=== PATIENT | female | born 1990 | race Caucasian/White ===

== ENCOUNTER → 2023-12-16 15:30 | Outpatient (CLI) | payer OTHER, SELFPAY ==
[2023-12-16 17:12] LABS: Influenza A - CEPHEID Flu A NEGATIVE (NEGATIVE); Influenza B - CEPHEID Flu B NEGATIVE (NEGATIVE); Respiratory Syncytial Virus Negative (Negative)
[2023-12-16 17:18] LABS: COVID-19 CEPHEID 4-PLEX PCR Negative (Negative)
== END ==
PROVIDERS: Referring Provider Student in an Organized Health Care Education/Training Program; Visit Provider Student in an Organized Health Care Education/Training Program
DX: R05.1 Acute cough (principal)
CPT/HCPCS: 0241U

== ENCOUNTER 2023-12-16 15:41 | Emergency (ER) | payer OTHER, SELFPAY ==
[2023-12-16 15:49] VITALS: BP 133/71; PULSE 83; RESP 16; TEMP 36.4; O2SAT 99; BMI 65.2
--- NOTE | 2023-12-16 16:09 | PC.NURSE ---
patient has a history of migraines, pt reports that usually she feels nauseous and throws up with her migraines but today she hasnt stopped throwing up and her migraine medication has not helped her pain
--- NOTE | 2023-12-16 16:25 | ED_ITS ---
HPI - Headache General Chief Complaint: Headache Stated Complaint: Headache/V Time Seen by Provider: 12/16/23 15:52 Mode of arrival: Ambulatory History of Present Illness HPI Narrative: 33-year-old female presents for headache. Reports history of migraines, but s tates that this is not responding to her home Imitrex. Reports history of migraines but has never had to come to the emergency department for treatment. Here on vacation from [place] Related Data Home Medications Medication Instructions Recorded Confirmed atorvastatin 20 mg tablet 20 mg PO DAILY 12/16/23 12/16/23 sertraline 100 mg tablet 100 mg PO DAILY 12/16/23 12/16/23 Allergies Allergy/AdvReac Type Severity Reaction Status Date / Time No Known Drug Allergies Allergy Unverified 12/16/23 15:55 Patient History Social History Smoking Status: Never smoker Smoking Status: Never smoker Exam Initial Vital Signs Initial Vital Signs: Vital Signs Temperature 97.5 F L 12/16/23 15:49 Pulse Rate 83 12/16/23 15:49 Respiratory Rate 16 12/16/23 15:49 Blood Pressure 133/71 12/16/23 15:49 Pulse Oximetry 99 12/16/23 15:49 Oxygen Delivery Method Room Air 12/16/23 15:49 Const: Awake, alert, uncomfortable, in pain GI: Soft, nontender, nondistended Skin: Warm, Dry, intact, no rashes Neuro: AO x3, CN II-XII grossly intact, moves all extremities Course Orders Ordered: Discontinued Medications Diphenhydramine HCl (Diphenhydramine 50 Mg/Ml Vial) 50 mg IV NOW ONE Stop: 12/16/23 16:22 Last Admin: 12/16/23 16:33 Dose: 50 mg Documented By: WINDY Sodium Chloride (Normal Saline 0.9%) 1,000 mls @ 1,000 mls/hr IV BOLUS ONE Stop: 12/16/23 17:20 Last Infusion: 12/16/23 17:29 Dose: Infused Documented By: Admin: 12/16/23 16:35 Dose: 1,000 mls/hr Documented By: WINDY Ketorolac Tromethamine (Ketorolac 30 Mg/Ml Vial) 15 mg IV NOW ONE Stop: 12/16/23 16:26 Last Admin: 12/16/23 16:30 Dose: 15 mg Documented By: WINDY Metoclopramide HCl (Metoclopramide 10 Mg/2 Ml Inj) 10 mg IV NOW ONE Stop: 12/16/23 16:22 Last Admin: 12/16/23 16:30 Dose: 10 mg Documented By: WINDY Vital Signs Vital signs: Vital Signs - 8 hr 12/16/23 15:49 12/16/23 16:44 12/16/23 16:45 Temperature 97.5 F L Pulse Rate 83 88 Respiratory Rate 16 Blood Pressure 133/71 102/52 L Pulse Oximetry 99 99 Oxygen Delivery Method Room Air 12/16/23 16:45 12/16/23 17:00 12/16/23 17:00 Temperature Pulse Rate 86 84 Respiratory Rate Blood Pressure 100/50 L Pulse Oximetry 100 100 Oxygen Delivery Method MDM - Headache Differential Diagnosis Differential diagnosis: Likely migraine, tension headache and subarachnoid hemorrhage Imaging Data CT scan - head: Radiologist's Impression: PROCEDURE: CT HEAD/BRAIN WO CON INDICATIONS: NAZARIO, NEW PATTERN TECHNIQUE: Noncontrast 4.5 mm thick angled axial sections acquired from the foramen magnum to the vertex, with coronal and sagittal reformats. For radiation dose reduction, the following was used: automated exposure control, adjustment of mA and/or kV according to patient size. COMPARISON: None. FINDINGS: Image quality: Diagnostic. CSF spaces: Basal cisterns are patent. No extra-axial fluid collections. Ventricles are normal in size and shape. Brain: No midline shift. No intracranial masses or hemorrhage. Trevino-white matter interface is normal. Skull and face: Calvarium and visualized facial bones are intact, without suspicious lesions. Sinuses: Visualized sinuses and mastoids are clear. IMPRESSION: No acute intracranial hemorrhage is seen. No acute intracranial pathology. To the limits of this noncontrast study, no findings of intracranial masses or mass effect can be seen. Dictated by: Shiraz Resendiz M.D. on 12/16/2023 at 15:54 Approved by: Shiraz Resendiz M.D. on 12/16/2023 at 15:54 [facility] Narrative Medical decision making narrative: Migraine headache, reportedly worse than usual. Since this is a worse than usual pattern of headache for patient was CT was ordered, which did not show any acute abnormalities. Patient received IV headache cocktail with significant improvement in symptoms. Patient counseled on supportive care for headaches at home prior to discharge. Discharge Plan Departure Patient Disposition: Home Clinical Impression: Migraine Instructions: DI for Migraine Activity Restrictions/Additional Instructions: Your CT was normal today. We gave you a headache cocktail including fluids, Toradol, Reglan, and Benadryl. Continue to take your migraine medications as prescribed. Make sure to stay hydrated by drinking plenty of fluids. You may also take Tylenol and ibuprofen as needed for discomfort. Prescriptions: No Action sertraline 100 mg tablet 100 mg PO DAILY atorvastatin 20 mg tablet 20 mg PO DAILY Referrals: Miscellaneous,Doctor, MD [Primary Care Provider] - Stand Alone Forms: Patient Portal/API
[2023-12-16] MEDS: METOCLOPRAMIDE 10 MG/2 ML INJ IV (16:30)
[2023-12-16] MEDS: KETOROLAC 30 MG/ML VIAL 15 MG IV (16:30)
[2023-12-16] MEDS: diphenhydrAMINE 50 MG/ML VIAL IV (16:33)
[2023-12-16] MEDS: SODIUM CHLORIDE 0.9% 1,000 ML 1000 ML IV (16:35)
[2023-12-16 16:44] VITALS: PULSE 88; O2SAT 99
[2023-12-16 16:45] VITALS: BP 102/52; PULSE 86; O2SAT 100
[2023-12-16 17:00] VITALS: BP 100/50; PULSE 84; O2SAT 100
== END 2023-12-16 17:30 | disposition home or self-care (01) ==
PROVIDERS: Emergency Provider Emergency Medicine
DX: G43.909 Migraine, unspecified, not intractable, without status migrainosus (principal); R05.1 Acute cough
CPT/HCPCS: 0241U; 36415; 70450; 96374; 96375; 99284; J1200; J1885; J2765